=== PATIENT | male | born 1975 | race Caucasian/White ===

== ENCOUNTER 2017-07-14 09:42 | Emergency (ER) | payer OTHER ==
--- NOTE | 2017-07-14 10:18 | ED Physician Documentation ---
PD HPI UPPER EXT INJURY - Stated complaint Stated Complaint: L SHOULDER PAIN - Chief complaint Chief Complaint: Ext Problem - History obtained from History obtained from: Patient - History of Present Illness Location: Left, Shoulder Type of injury: Other (has been doing a lot of heavy work and also upper body exercises (pushups) as part of recent training increase (Chief readiness or such ). Having pain left shoulder with use and ROM. Worse the past week. Seen at [facility] and given Motrin.). No: Fall, Twist, Blunt / blow Where injury occurred: Work Timing - onset: How many weeks ago (3-4) Timing - details: Gradual onset, Still present, Waxing and waning Worsened by: Moving Associated symptoms: No: Weakness, Numbness, Swelling Contributing factors: No: Prior ortho surgery Similar symptoms before: Has not had sx before Recently seen: Clinic Review of Systems Constitutional: denies: Fever, Chills Skin: denies: Rash, Lesions Musculoskeletal: denies: Neck pain Neurologic: denies: Focal weakness, Numbness PD PAST MEDICAL HISTORY - Past Medical History Past Medical History: No - Past Surgical History Past Surgical History: No - Present Medications Home Medications: Ambulatory Orders Medication Instructions Recorded Confirmed Ibuprofen 800 mg PO Q6HR 07/14/17 07/14/17 Methocarbamol [Robaxin] 500 mg PO Q6H PRN #25 tablet 07/14/17 Tramadol HCl 50 mg PO Q6H PRN #20 tablet 07/14/17 - Allergies Allergies/Adverse Reactions: Allergies Allergy/AdvReac Type Severity Reaction Status Date / Time No Known Drug Allergies Allergy Verified 07/14/17 09:51 - Social History Does the pt smoke?: No Smoking Status: Never smoker - Immunizations Immunizations are current?: Yes PD ED PE NORMAL - Vitals Vital signs reviewed: Yes - General General: Alert and oriented X 3, Well developed/nourished - Neck Neck: Supple, no meningeal sign, No bony TTP, No adenopathy - Cardiac Cardiac: RRR, No murmur - Respiratory Respiratory: Clear bilaterally - Derm Derm: Normal color, Warm and dry, No rash - Extremities Extremities: No deformity, Other (left shoulder with tenderness posteriorly and at suprascapular area with muscle point tenderness at lateral suprascapular area. Not tender at AC area. Pain with abduction, extension, and external rotation against resistance. No noted laxity of joint. ) - Neuro Neuro: Alert and oriented X 3, No motor deficit, No sensory deficit Results - Vitals Vitals: Vital Signs - 24 hr 07/14/17 07/14/17 09:48 11:34 Temperature 36.7 C Heart Rate 85 75 Respiratory 16 16 Rate Blood Pressure 124/81 H 133/83 H O2 Saturation 100 98 Oxygen O2 Source Room air - Rads (name of study) shoulder Radiology: Prelim report reviewed, EMP read contemporaneously (no acute findings.) PD MEDICAL DECISION MAKING - ED course Complexity details: considered differential (seems rotator cuff tendonitis. He is doing alot of physical work and exercises (chief readiness training or such). ), d/w patient, other (muscle trigger point injection with lido and kenalog at suprascapular area laterally in area of most focal tenderness. ) Departure - Departure Disposition: 01 Home, Self Care Clinical Impression: Rotator cuff tendinitis Qualifiers: Laterality: left Qualified Code(s): M75.82 - Other shoulder lesions, left shoulder Condition: Stable Record reviewed to determine appropriate education?: Yes Instructions: ED Tendinitis Rotator Cuff [facility] Prescriptions: Methocarbamol [Robaxin] 500 mg PO Q6H PRN #25 tablet PRN Reason: Spasms Tramadol HCl 50 mg PO Q6H PRN #20 tablet PRN Reason: Pain Comments: Light use of the left shoulder for the next week. No overhead reaching nor push -ups and no heavy lifting or push pull. Light use is okay. You do not want to immobilize the shoulder as it may stiffen up on you. Continue ibuprofen 2-3 times a day. Add methocarbamol if needed for spasms. Add Tylenol and tramadol as needed for pains, particularly at night for sleep. Follow-up with your primary care in the next several days or this following week. Initiate physical therapy as previously started to be arranged. Forms: Activity restrictions Discharge Date/Time: 07/14/17 11:34
[2017-07-14] MEDS ORDERED: traMADol 50 MG TABLET PO STA (10:32)
[2017-07-14] MEDS ORDERED: METHOCARBAMOL 500 MG TABLET PO STA (10:32)
[2017-07-14] MEDS ORDERED: TRIAMCINOLONE 40 MG/ML VIAL IM STA (10:32)
[2017-07-14] MEDS ORDERED: ACETAMINOPHEN 325 MG TABLET PO STA (10:32)
[2017-07-14] MEDS ORDERED: TRIAMCINOLONE 40 MG/ML VIAL ONE (10:47)
[2017-07-14] MEDS ORDERED: traMADol 50 MG TABLET PO ONE (10:47)
[2017-07-14] MEDS ORDERED: ACETAMINOPHEN 325 MG TABLET PO ONE (10:47)
[2017-07-14] MEDS ORDERED: METHOCARBAMOL 500 MG TABLET PO ONE (10:48)
[2017-07-14 11:35] VITALS: BP 133/83
--- NOTE | 2017-07-14 11:43 | XRAY Preliminary Report ---
Exam: XR Shoulder 3 View LT IMPRESSION: 1. Minimal left glenohumeral and acromioclavicular osteoarthritis. 2 ossific densities in the region of the glenohumeral joint may represent joint bodies. [facility] SITE ID: [id number]
--- NOTE | 2017-07-14 11:46 | XRAY Report ---
EXAM: LEFT SHOULDER RADIOGRAPHY EXAM DATE: 07/14/2017 10:45 AM. CLINICAL HISTORY: Left Shoulder pain for few weeks. COMPARISON: None. TECHNIQUE: 3 views. FINDINGS: Bones: Normal. No fracture or bone lesion. Joints: 10 mm and 7 mm ossific overlie region of the sub-labral recess. Minimal acromioclavicular and glenohumeral osteoarthritis. Soft tissues: The visualized hemithorax is unremarkable. No soft tissue swelling. IMPRESSION: 1. Minimal left glenohumeral and acromioclavicular osteoarthritis. 2 ossific densities in the region of the glenohumeral joint may represent joint bodies. [facility] Referring Provider Line: [phone] SITE ID: [id number]
== END 2017-07-14 11:34 | disposition home or self-care (01) ==
LOC: ED 09:42
DX: M75.82 Other shoulder lesions, left shoulder (principal)
CPT/HCPCS: 73030; 96372; 99283; A9270

== ENCOUNTER 2017-09-28 05:55 | Day surgery (SDC) | payer OTHER ==
[2017-09-28] MEDS ORDERED: ceFAZolin 2 GM/50 ML 2 GM/50 ML BAG IV ONE (06:03)
[2017-09-28] MEDS ORDERED: LACTATED RINGERS 1,000 ML IV ONE ×2 (06:21→08:30)
[2017-09-28] MEDS ORDERED: BUPIVACAINE 0.5% PF 30 ML VIAL SUBQ ONE ×2 (08:10)
[2017-09-28] MEDS ORDERED: KETOROLAC 30 MG/ML VIAL IVP ONE (09:00)
[2017-09-28] MEDS ORDERED: fentaNYL 100 MCG/2 ML VIAL IVP ONE (09:00)
[2017-09-28] MEDS ORDERED: ACETAMINOPHEN 1,000 MG/100 ML 100 ML IV ONE (09:00)
[2017-09-28] MEDS ORDERED: LIDOCAINE-MPF 2% 5 ML VIAL IM ONE (09:00)
[2017-09-28] MEDS ORDERED: PROPOFOL 1000 MG/100 ML IV ONE (09:00)
[2017-09-28] MEDS ORDERED: GLYCOPYRROLATE 1 MG/5 ML VIAL IVP ONE (09:00)
[2017-09-28] MEDS ORDERED: SUCCINYLCHOLINE 200 MG/10 ML VIAL IVP ONE (09:00)
[2017-09-28] MEDS ORDERED: ONDANSETRON 4 MG/2 ML VIAL IVP ONE (09:00)
[2017-09-28] MEDS ORDERED: DEXAMETHASONE 4 MG/ML VIAL IVP ONE (09:00)
[2017-09-28] MEDS ORDERED: NEOSTIGMINE 1 MG/1 ML 10 ML MDV IVP ONE (09:00)
[2017-09-28] MEDS ORDERED: MIDAZOLAM 2 MG/2 ML VIAL IVP ONE (09:00)
[2017-09-28] MEDS ORDERED: ROCURONIUM 50 MG/5 ML VIAL IVP ONE (09:00)
[2017-09-28] MEDS: LABETALOL 20 MG/4 ML SYRINGE IVP ONE ×3 (09:49→10:05)
[2017-09-28] MEDS: HYDROmorphone 1 MG/ML SYRINGE ONE ×2 (10:02→10:18)
[2017-09-28] MEDS ORDERED: HYDROcod/ACETAM 5/325 MG TABLET ONE (11:12)
[2017-09-28 11:55] VITALS: BP 126/91
--- NOTE | 2017-09-28 16:06 | OPERATIVE REPORT ---
DATE OF SURGERY: 09/28/2017 00:00:00 PREOPERATIVE DIAGNOSIS: Bilateral inguinal hernias. POSTOPERATIVE DIAGNOSIS: Bilateral inguinal hernias. NAME OF PROCEDURE: SURGEON: Sundar Breaux MD ANESTHESIA: General, Kashmir Skaggs CRNA. INDICATIONS FOR PROCEDURE: The patient is a 41-year-old male who presents with swelling in the left groin region. On physical exam, he has bilateral reducible inguinal hernias. FINDINGS AT SURGERY: The patient had large, direct bilateral inguinal hernias being present. It was repaired using Tepp method, using large Bard 3DMax meshes. DESCRIPTION OF PROCEDURE: After informed consent was obtained, the patient was taken to the operating room and placed in supine position. General endotracheal anesthesia was administered. The patient's abdomen was then prepped and draped in the usual sterile fashion. Prior to making any abdominal incision, the skin was injected with local anesthesia. An infraumbilical incision was made in the skin using a scalpel. The incision was then deepened down to the fascial layer using electrocautery. The external oblique fascial layer was then incised left lateral of the midline. This allowed dissection underneath the rectus muscle. The dissecting balloon was then placed through the incision underneath the rectus muscle and into the retrorectus space down to the pubic bone. The balloon was then insufflated under direct vision. The balloon was then removed, and the holding balloon was then placed. The preperitoneal space was then insufflated. A 5 mm port was then placed on either side of the midline just below the umbilical port site. Attention turned to the right side. The patient had a direct inguinal hernia. The adipose contents were then reduced out of the hernia sac with the pubic bone well visualized. The patient did not have an indirect. The peritoneum was then dissected off of the cord structures laterally to the anterior superior iliac spine. Attention turned to the left side in which the identical findings were found and the space being dissected likewise as the right side. Bard large 3DMax mesh was then placed into both myopectineal orifices. The mesh was then secured to the Nicholas ligament bilaterally, using Securestrap stapling device. The mesh covered both defects adequately and overlapped at the midline. Then, 10 mL of Marcaine were then placed over the tissue bearing the cord structures. The preperitoneal space was then desufflated with the mesh staying in good position. The ports were then removed. The fascial defect at the infraumbilical area was then closed using 0 Vicryl suture. Skin incisions were closed using 4- 0 Monocryl subcuticular stitches. Dermabond was then applied. The patient was then awakened, extubated and taken from the operating room in stable condition. ESTIMATED BLOOD LOSS: Less than 5 mL. COMPLICATIONS: None. CONDITION OF THE PATIENT AT END OF PROCEDURE: Stable. SPECIMENS: None. DRAINS/PACKS: None. CLASSIFICATION OF WOUND: Clean. JOB #: [id number] EXT JOB #:[id number] MTDD
== END 2017-09-28 05:56 | disposition home or self-care (01) ==
LOC: SDS 05:55
PROVIDERS: ATTEND Surgery
PROC: 0YUA0JZ Supplement Bilateral Inguinal Region with Synthetic Substitute, Open Approach (ICD-10-PCS; principal; 2017-09-28 07:30)
DX: K40.20 Bilateral inguinal hernia, without obstruction or gangrene, not specified as recurrent (principal); Z87.891 Personal history of nicotine dependence
CPT/HCPCS: 49505; A9270; C1781; J0131; J0690; J1170; J7120

== ENCOUNTER 2021-03-15 10:18 | Outpatient (CLI) | payer OTHER | END 2021-03-15 10:19 | disposition home or self-care (01) | LOC: DI 10:18 | DX: R00.0 Tachycardia, unspecified (principal); I51.7 Cardiomegaly | CPT/HCPCS: 93306 ==

== ENCOUNTER 2024-03-04 10:17 | Outpatient (CLI) | payer OTHER ==
--- NOTE | 2024-03-04 10:53 | Sleep Patient Instructions ---
Sleep Center Visit Summary - Patient Visit Information Reason for Visit: Initial consult for evaluation of sleep disordered breathing and other sleep issues. - Patient Instructions Instructions Attached: Sleep Study Additional Instructions: You will be completing a sleep study, either an in-lab polysomnography (PSG) or home sleep study (HST). You will follow-up in the sleep care office after the sleep study is completed to hear the results and talk about therapy, if needed. You will be called by our office staff to schedule this appointment, but you may contact us with any questions. - Clinic Information Contact: [facility] [address] [place] [address] [email or web address] T: [phone]
--- NOTE | 2024-03-04 10:58 | SLEEP CARE CONSULTATION ---
Information from patient questionnaire entered by Zeke Holland. I have reviewed and concur with the information entered by Zeke Holland. This document represents the service I personally performed and the decisions made by me, Kera Braxton ARNP. History of Present Illness Service Date and Time: 03/04/2024 1017 Reason for Visit: New patient Chief Complaint: reports: Unrefreshed sleep, Snoring, Fatigue, Frequent awakenings at night Date of Onset: 5YRS Usual bedtime: 2200 Time it takes to fall asleep: 10MINS Snores at night: Yes Observed to quit breathing while asleep: No Sleeps alone due to snoring: No Number of times waking at night: 3-5 Reasons for waking at night: reports: Other (unknown reasons). denies: Choking, Snoring, Gasping for air Toss, Turn, or Twitch while sleeping: Yes Recalls having dreams: Yes Usually gets out of bed at: 5365-2601 Feels refreshed in the morning: No Morning headache: No Sleepy or fatigued during the day: Yes Ever fallen asleep while driving: No Takes day naps: No Dreams during day naps: No Prior sleep studies: No Additional HPI information: I had the pleasure of seeing RATNA HEMPHILL today regarding the possibility of him having a sleep disorder. His current complaints are fatigue, frequent night awakenings, snoring and unrefreshed sleep. The patient tells me that he normally goes to bed around 10 PM, and it takes him approximately 10 minutes to fall asleep. He has been told that he snores loudly and irregularly at night. He has been told he "clamps his teeth", "grinding", "chomping" his teeth at night. He has not been observed to stop breathing in his sleep. He can recall waking up on the average of 3-5 times during the night. Most of the time he wakes up because of unknown reasons. He has not awakened for his own snoring, choking, and having to gasp for air. There is a lot of tossing and turning in his sleep. Generally he can recall having dreams. He usually wakes up at 5-5:30 AM and does not feel refreshed. He usually does have a morning headache but this is a rare occurrence and last a couple hours. During the day he complains of feeling sleepy and fatigued. He has never fallen asleep while driving nor has any accident due to sleepiness. He sometimes naps on the weekends and naps for about 30 minutes during the day. If he naps, upon falling asleep during the day he denies having vivid dreams. There is somniloquy (sleep talking) but no somnambulism (sleep walking). He has never experienced sleep paralysis, cataplexy, or symptoms of restless leg syndrome. He reports having impaired concentration during the day. 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 Patient is and lives in [place]. Have you smoked in the past 12 months: No (PATIENT IS VAPING) Cigarettes per day (20/pack): 10 Years of smokin Quit date: 09/2020 Smoking Pack Years: 2.5 Alcohol use: Yes Alcohol amount and frequency: 3-4 DRINKS 4-5 TIMES PER WEEK Caffeine use: Yes Caffeine amount and frequency: 1-2 CUPS OF TEA MON-FRI Family History Family history of sleep disordered breathing: No Allergies and Home Medications Known drug allergies: No Drug allergies reviewed: Yes Home medication list reviewed: Yes (as listed) Allergy and home medication list: Allergies No Known Drug Allergies Allergy (Verified 02/28/24 14:41) Medications: Losartan 50 mg daily Review of Systems Cardiovascular: reports: high blood pressure, irregular heart rate or pulse (elevated pulse, resting HR over 100) Respiratory: reports: shortness of breath Gastrointestinal: reports: heartburn, diarrhea Urinary: reports: impotence Neurological: denies: headaches Psychiatric: reports: anxiety Ear/Nose/Throat: reports: nose bleeds, hoarseness, wisdom teeth removed. denies: tonsillectomy Musculoskeletal: reports: joint pain, neck pain, back pain Immunologic: reports: allergies to food or environment (sometimes seasonal allergies) Physical Exam Vital signs obtained and entered by: ZEKE Ortiz MA Blood Pressure: 181/133 (LEFT ARM) Cuff size: regular Heart Rate: 95 O2 Saturation: 98 Height: 5 ft 8.5 in Weight: 197 lb 9.6 oz Body Mass Index: 29.6 BMI Classification: Overweight Neck circumference: 16.5 Nostrils: patent to airflow Mouth and throat: narrow oropharynx Soft palate: normal Hard palate: normal Uvula: normal Uvula visualization: 50% Mallampati Class II Tongue: enlarged in size with teeth ulloa on lateral edges Tonsils: small Neck: normal w/o lymphadenopathy or thyromegaly Heart: regular rate and rhythm Lungs: clear bilaterally Impression and Plan 1. Suspected Obstructive Sleep Apnea-Hypopnea Syndrome, as suggested by a history of irregular snoring, frequent awakening during the night, unrefreshed sleep and cognitive impairment. Narrow oropharynx and obesity are common predisposing factors for obstructive sleep apnea-hypopnea syndrome. I recommend proceeding to polysomnography to confirm the diagnosis and to assess severity. If the patient has significant sleep disordered breathing, a manual CPAP titration study will also be performed to find the optimal treatment pressure. I informed the patient of what the sleep studies involve and after some discussion, obtained agreement to proceed. The pathophysiology of obstructive sleep apnea-hypopnea syndrome was discussed with the patient and health risks of cardiovascular and cerebrovascular disease if not treated. Risks of drowsy driving discussed in detail and patient advised to avoid long distance driving and to caul puller at the first sign of drowsiness. Patient agreed to plan. 2. Elevated blood pressure reading in patient with hypertension. His blood pressure was noted to be 181/133 in the clinic today. He is feeling well today with no complaints. He is working with his doctor to reduce his blood pressure and is taking Losartan daily. He says he has a follow up with his doctor for his blood pressure. * Schedule polysomnography. * Follow up with PCP for elevated blood pressure as needed * Avoid long distance driving or driving when feeling sleepy. * Avoid alcohol, sedative and muscle relaxant around bedtime. * Attempt to lose weight. * Review instructions provided by trained office staff on how to prepare for the sleep study. * Return for follow-up after sleep study completed. Counseling Topics: Weight loss health impact Plan: PSG and followup Visit Type: In Office Time Spent with Patient (minutes): 30 Provider Statement: I spent 100% of the Face to Face Visit with the patient with greater than 50% spent counseling the patient and coordination of care.
[2024-03-04 10:59] VITALS: BP 181/133; O2SAT 98
== END 2024-03-04 10:18 | disposition home or self-care (01) ==
LOC: SC 10:17
PROVIDERS: ATTEND Nurse Practitioner Family
DX: R06.83 Snoring (principal); G47.8 Other sleep disorders; R41.89 Other symptoms and signs involving cognitive functions and awareness; I10 Essential (primary) hypertension; E66.3 Overweight; Z68.29 Body mass index [BMI] 29.0-29.9, adult
CPT/HCPCS: 99203; 99212